=== PATIENT | female | born 1985 | race Caucasian/White ===

== ENCOUNTER 2016-08-06 18:02 | Emergency (ER) | payer MEDICAID ==
[~2016-08-06] VITALS: Ht 170.2 cm; Wt 116.1 kg
[~2016-08-06 18:02] MED LIST: COLACE100 MG PO; KEPPRA500 MG PO; LAMICTAL200 MG PO; NOR10T PO
[2016-08-06 19:24] VITALS: BP 123/84
== END 2016-08-06 19:24 | disposition home or self-care (01) ==
LOC: ED 18:02
DX: L02.611 Cutaneous abscess of right foot (principal); Z79.899 Other long term (current) drug therapy
CPT/HCPCS: 90715; J2001

== ENCOUNTER 2016-08-08 13:41 | Emergency (ER) | payer MEDICAID ==
[~2016-08-08] VITALS: Ht 170.2 cm; Wt 117.5 kg
[2016-08-08 18:10] VITALS: BP 113/76
== END 2016-08-08 18:10 | disposition home or self-care (01) ==
LOC: ED 13:41
DX: Z48.01 Encounter for change or removal of surgical wound dressing (principal); L03.031 Cellulitis of right toe

== ENCOUNTER 2016-10-23 11:44 | Emergency (ER) | payer MEDICAID ==
[~2016-10-23] VITALS: Ht 170.2 cm; Wt 119.3 kg
[2016-10-23 11:55] VITALS: BP 138/78
== END 2016-10-23 12:41 | disposition home or self-care (01) ==
LOC: ED 11:44
DX: N39.0 Urinary tract infection, site not specified (principal); Z90.89 Acquired absence of other organs; Z90.49 Acquired absence of other specified parts of digestive tract

== ENCOUNTER 2016-11-01 06:43 | Emergency (ER) | payer MEDICAID ==
[2016-11-01 08:32] LABS: UA SPECIFIC GRAVITY 1.015 (1.005-1.035); microscopic required? YES; urine erythrocyte NEGATIVE (NEGATIVE)
== END 2016-11-01 08:02 | disposition home or self-care (01) ==
LOC: ED 06:43
PROVIDERS: Emergency Medicine
DX: N39.0 Urinary tract infection, site not specified (principal); Z79.899 Other long term (current) drug therapy

== ENCOUNTER 2017-05-14 19:34 | Emergency (ER) | payer MEDICAID ==
[~2017-05-14] VITALS: Ht 170.2 cm; Wt 115.2 kg
[2017-05-14 19:58] VITALS: Ht 170.2 cm; Wt 115.2 kg
[2017-05-14 22:47] VITALS: BP 102/65
== END 2017-05-14 22:47 | disposition home or self-care (01) ==
LOC: ED 19:34
DX: J30.9 Allergic rhinitis, unspecified (principal); R11.10 Vomiting, unspecified

== ENCOUNTER 2017-06-26 17:43 | Emergency (ER) | payer MEDICAID ==
[~2017-06-26] VITALS: Ht 170.2 cm; Wt 116.6 kg
[2017-06-26 17:56] VITALS: Ht 170.2 cm; Wt 116.6 kg
[2017-06-26 19:44] VITALS: BP 146/72
== END 2017-06-26 19:44 | disposition home or self-care (01) ==
LOC: ED 17:43
DX: J34.0 Abscess, furuncle and carbuncle of nose (principal); J06.9 Acute upper respiratory infection, unspecified

== ENCOUNTER 2017-09-22 17:29 | Emergency (ER) | payer MEDICAID ==
[~2017-09-22] VITALS: Ht 170.2 cm; Wt 120.7 kg
[~2017-09-22 17:29] MED LIST changes: +NORCO1 TA2 PO
[2017-09-22 17:38] VITALS: Ht 170.2 cm; Wt 120.7 kg
[2017-09-22 19:13] LABS: CARBON DIOXIDE 27.2 mmol/L (21-32); CHLORIDE SERUM 103 mmol/L (98-107); CREATININE SERUM 0.8 mg/dL (0.6-1.0); GFR1 > 60 mL/min; GLUCOSE SERUM 106 mg/dL (74-106); POTASSIUM SERUM 3.5 mmol/L (3.5-5.1); SODIUM SERUM 140 mmol/L (136-145)
[2017-09-22 19:15] LABS: BASOPHIL % 0.8 % (0-2); RED CELL DISTRIBUTION WIDTH 13.6 % (11.5-14.5)
[2017-09-22 19:16] LABS: ALBUMIN 3.4 g/dL (3.4-5.0); ALKALINE PHOSPHATASE 72 U/L (46-116); ALT/SGPT 23 U/L (14-59); AST/SGOT 14 U/L (15-37); BILIRUBIN TOTAL 0.34 mg/dL (0.20-1.00); TOTAL PROTEIN, SERUM 7.6 g/dL (6.4-8.2)
[2017-09-22 19:22] LABS: PLATELET COUNT 421 x10^3mcL (130-400)
[2017-09-22 20:59] VITALS: BP 107/73
== END 2017-09-22 20:59 | disposition home or self-care (01) ==
LOC: ED 17:29
PROVIDERS: Emergency Medicine
DX: L03.311 Cellulitis of abdominal wall (principal)
CPT/HCPCS: J3490; Q9967

== ENCOUNTER 2017-10-11 18:02 | Emergency (ER) | payer MEDICAID | END 2017-10-11 19:15 | disposition left against medical advice (07) | LOC: ED 18:02 | DX: Z53.21 Procedure and treatment not carried out due to patient leaving prior to being seen by health care provider (principal) ==

== ENCOUNTER 2017-11-29 16:29 | Emergency (ER) | payer MEDICAID ==
[~2017-11-29] VITALS: Ht 170.2 cm; Wt 121.6 kg
[2017-11-29 16:40] VITALS: BP 162/78; Ht 170.2 cm; Wt 121.6 kg
== END 2017-11-29 18:14 | disposition home or self-care (01) ==
LOC: ED 16:29
DX: M25.532 Pain in left wrist (principal); M25.531 Pain in right wrist; Z90.49 Acquired absence of other specified parts of digestive tract; Z90.721 Acquired absence of ovaries, unilateral; Z86.69 Personal history of other diseases of the nervous system and sense organs

== ENCOUNTER 2018-01-04 16:09 | Emergency (ER) | payer MEDICAID ==
[~2018-01-04] VITALS: Ht 170.2 cm; Wt 122.5 kg
[2018-01-04 16:30] VITALS: Ht 170.2 cm; Wt 122.5 kg
[2018-01-04 17:37] VITALS: BP 140/82
== END 2018-01-04 17:37 | disposition home or self-care (01) ==
LOC: ED 16:09
DX: B34.9 Viral infection, unspecified (principal); L30.9 Dermatitis, unspecified; Z90.49 Acquired absence of other specified parts of digestive tract; Z90.89 Acquired absence of other organs; Z90.721 Acquired absence of ovaries, unilateral

== ENCOUNTER 2018-03-23 15:31 | Emergency (ER) | payer MEDICAID ==
[~2018-03-23] VITALS: Ht 170.2 cm; Wt 117.5 kg
[2018-03-23 15:33] VITALS: Ht 170.2 cm; Wt 117.5 kg
[2018-03-23 16:13] LABS: BASOPHIL % 0.4 % (0-2); RED CELL DISTRIBUTION WIDTH 14.5 % (11.5-14.5)
[2018-03-23 16:15] LABS: PLATELET COUNT 408 x10^3mcL (130-400)
[2018-03-23 16:23] LABS: CALCIUM 8.7 mg/dL (8.5-10.1); CARBON DIOXIDE 29.3 mmol/L (21-32); CHLORIDE SERUM 105 mmol/L (98-107); CREATININE SERUM 0.7 mg/dL (0.6-1.0); GFR1 > 60 mL/min; GLUCOSE SERUM 101 mg/dL (74-106); POTASSIUM SERUM 4.1 mmol/L (3.5-5.1); SODIUM SERUM 140 mmol/L (136-145)
[2018-03-23 16:55] VITALS: BP 120/80
== END 2018-03-23 16:55 | disposition home or self-care (01) ==
LOC: ED 15:31
PROVIDERS: Emergency Medicine
DX: G62.9 Polyneuropathy, unspecified (principal); R51 Headache; Z90.49 Acquired absence of other specified parts of digestive tract; Z90.89 Acquired absence of other organs; Z98.890 Other specified postprocedural states; Z90.721 Acquired absence of ovaries, unilateral
CPT/HCPCS: J1200; J1885; J2765

== ENCOUNTER 2018-07-18 15:57 | Emergency (ER) | payer MEDICAID ==
[~2018-07-18] VITALS: Ht 170.2 cm; Wt 110.8 kg
[2018-07-18 16:07] VITALS: Ht 170.2 cm; Wt 110.8 kg
[2018-07-18 18:48] LABS: microscopic required? NO
[2018-07-18 18:57] LABS: UA SPECIFIC GRAVITY >=1.030 (1.005-1.035); urine erythrocyte NEGATIVE (NEGATIVE)
[2018-07-18 19:05] LABS: BASOPHIL % 0.4 % (0-2); PLATELET COUNT 374 x10^3mcL (130-400); RED CELL DISTRIBUTION WIDTH 14.3 % (11.5-14.5)
[2018-07-18 19:14] LABS: CALCIUM 9.5 mg/dL (8.5-10.1); CARBON DIOXIDE 27.3 mmol/L (21-32); CHLORIDE SERUM 102 mmol/L (98-107); CREATININE SERUM 0.8 mg/dL (0.6-1.0); GFR1 > 60 mL/min; GLUCOSE SERUM 88 mg/dL (74-106); SODIUM SERUM 138 mmol/L (136-145)
[2018-07-18 19:26] LABS: ALBUMIN 3.9 g/dL (3.4-5.0); ALKALINE PHOSPHATASE 71 U/L (46-116); ALT/SGPT 20 U/L (14-59); AST/SGOT 13 U/L (15-37); BILIRUBIN TOTAL 0.3 mg/dL (0.20-1.00); LIPASE 126 IU/L (73-393); TOTAL PROTEIN, SERUM 8.4 g/dL (6.4-8.2)
[2018-07-18 21:29] VITALS: BP 120/83
== END 2018-07-18 21:33 | disposition short-term general hospital (02) ==
LOC: ED 15:57
PROVIDERS: Emergency Medicine
DX: N83.202 Unspecified ovarian cyst, left side (principal); Z90.49 Acquired absence of other specified parts of digestive tract; Z90.89 Acquired absence of other organs; Z98.890 Other specified postprocedural states
CPT/HCPCS: 36415

== ENCOUNTER 2018-07-21 12:49 | Emergency (ER) | payer MEDICAID ==
[~2018-07-21] VITALS: Ht 170.2 cm; Wt 109.3 kg
[2018-07-21 12:50] VITALS: Ht 170.2 cm; Wt 109.3 kg
[2018-07-21 16:05] LABS: BASOPHIL % 1.8 % (0-2); PLATELET COUNT 341 x10^3mcL (130-400)
[2018-07-21 16:11] LABS: microscopic required? NO
[2018-07-21 16:12] LABS: CHLORIDE SERUM 103 mmol/L (98-107); CREATININE SERUM 0.8 mg/dL (0.6-1.0); GFR1 > 60 mL/min; GLUCOSE SERUM 92 mg/dL (74-106); POTASSIUM SERUM 4.1 mmol/L (3.5-5.1); SODIUM SERUM 141 mmol/L (136-145)
[2018-07-21 16:17] LABS: ALBUMIN 3.8 g/dL (3.4-5.0); ALKALINE PHOSPHATASE 64 U/L (46-116); ALT/SGPT 18 U/L (14-59); AST/SGOT 17 U/L (15-37); BILIRUBIN TOTAL 0.45 mg/dL (0.20-1.00); LIPASE 108 IU/L (73-393); TOTAL PROTEIN, SERUM 7.9 g/dL (6.4-8.2)
[2018-07-21 16:29] LABS: urine erythrocyte NEGATIVE (NEGATIVE)
[2018-07-21 18:12] VITALS: BP 118/72
== END 2018-07-21 18:12 | disposition home or self-care (01) ==
LOC: ED 12:49
PROVIDERS: Emergency Medicine
DX: N83.202 Unspecified ovarian cyst, left side (principal); Z90.49 Acquired absence of other specified parts of digestive tract; Z90.89 Acquired absence of other organs; Z98.890 Other specified postprocedural states
CPT/HCPCS: 36415; J2270; Q0162

== ENCOUNTER 2018-08-13 13:25 | Emergency (ER) | payer MEDICAID ==
[~2018-08-13] VITALS: Ht 170.2 cm; Wt 111.6 kg
[2018-08-13 13:41] VITALS: Ht 170.2 cm; Wt 111.6 kg
[2018-08-13 15:09] LABS: BASOPHIL % 0.6 % (0-2); PLATELET COUNT 308 x10^3mcL (130-400); RED CELL DISTRIBUTION WIDTH 13.9 % (11.5-14.5)
[2018-08-13 15:19] LABS: CHLORIDE SERUM 103 mmol/L (98-107); CREATININE SERUM 0.8 mg/dL (0.6-1.0); GFR1 > 60 mL/min; GLUCOSE SERUM 98 mg/dL (74-106); POTASSIUM SERUM 3.8 mmol/L (3.5-5.1); SODIUM SERUM 139 mmol/L (136-145)
[2018-08-13 15:24] LABS: ALBUMIN 3.6 g/dL (3.4-5.0); ALKALINE PHOSPHATASE 54 U/L (46-116); ALT/SGPT 20 U/L (14-59); AST/SGOT 10 U/L (15-37); BILIRUBIN TOTAL 0.3 mg/dL (0.20-1.00); LIPASE 128 IU/L (73-393); TOTAL PROTEIN, SERUM 7.8 g/dL (6.4-8.2)
[2018-08-13 15:44] LABS: UA SPECIFIC GRAVITY <=1.005 (1.005-1.035); microscopic required? YES; urine erythrocyte 3+ (NEGATIVE)
[2018-08-13 18:18] VITALS: BP 118/73
== END 2018-08-13 18:16 | disposition home or self-care (01) ==
LOC: ED 13:25
PROVIDERS: Emergency Medicine
DX: M54.16 Radiculopathy, lumbar region (principal); R10.84 Generalized abdominal pain; G40.909 Epilepsy, unspecified, not intractable, without status epilepticus; E66.9 Obesity, unspecified; Z68.38 Body mass index [BMI] 38.0-38.9, adult; Z90.49 Acquired absence of other specified parts of digestive tract
CPT/HCPCS: 36415; J1100; J1885

== ENCOUNTER 2018-11-16 08:05 | Emergency (ER) | payer MEDICAID ==
[~2018-11-16] VITALS: Ht 170.2 cm; Wt 112.0 kg
[2018-11-16 08:10] VITALS: Ht 170.2 cm; Wt 112.0 kg
[2018-11-16 08:48] LABS: CALCIUM 9.7 mg/dL (8.5-10.1); CARBON DIOXIDE 26.8 mmol/L (21-32); CHLORIDE SERUM 103 mmol/L (98-107); GFR1 > 60 mL/min; GLUCOSE SERUM 100 mg/dL (74-106); POTASSIUM SERUM 3.8 mmol/L (3.5-5.1); SODIUM SERUM 142 mmol/L (136-145)
[2018-11-16 08:53] LABS: ALBUMIN 3.7 g/dL (3.4-5.0); ALKALINE PHOSPHATASE 87 U/L (46-116); ALT/SGPT 26 U/L (14-59); AST/SGOT 21 U/L (15-37); BILIRUBIN TOTAL 0.41 mg/dL (0.20-1.00); TOTAL PROTEIN, SERUM 7.8 g/dL (6.4-8.2)
[2018-11-16 09:23] LABS: BASOPHIL % 0.5 % (0-2); PLATELET COUNT 270 x10^3mcL (130-400); RED CELL DISTRIBUTION WIDTH 14.4 % (11.5-14.5)
[2018-11-16 11:21] VITALS: BP 133/81
== END 2018-11-16 11:21 | disposition home or self-care (01) ==
LOC: ED 08:05
PROVIDERS: Emergency Medicine
DX: R07.89 Other chest pain (principal); R20.0 Anesthesia of skin; R06.02 Shortness of breath
CPT/HCPCS: 36415; 85378; J1885; Q0092

== ENCOUNTER 2018-11-17 21:50 | Emergency (ER) | payer MEDICAID ==
[~2018-11-17] VITALS: Ht 170.2 cm; Wt 115.7 kg
[2018-11-17 21:54] VITALS: Ht 170.2 cm; Wt 115.7 kg
[2018-11-18 02:14] VITALS: BP 111/71
== END 2018-11-18 02:15 | disposition home or self-care (01) ==
LOC: ED 21:50
DX: R07.89 Other chest pain (principal); G40.909 Epilepsy, unspecified, not intractable, without status epilepticus; E66.9 Obesity, unspecified; Z68.39 Body mass index [BMI] 39.0-39.9, adult; Z90.49 Acquired absence of other specified parts of digestive tract; Z90.89 Acquired absence of other organs
CPT/HCPCS: 36415; 85378; Q9967

== ENCOUNTER 2019-01-01 18:07 | Emergency (ER) | payer MEDICAID ==
[~2019-01-01] VITALS: Ht 170.2 cm; Wt 112.0 kg
[2019-01-01 18:35] VITALS: Ht 170.2 cm; Wt 112.0 kg
[2019-01-01 20:24] VITALS: BP 114/61
== END 2019-01-01 20:24 | disposition home or self-care (01) ==
LOC: ED 18:07
DX: K64.8 Other hemorrhoids (principal)

== ENCOUNTER 2019-03-23 15:57 | Emergency (ER) | payer MEDICAID ==
[~2019-03-23] VITALS: Ht 170.2 cm; Wt 111.1 kg
[2019-03-23 18:12] VITALS: BP 121/86
== END 2019-03-23 18:12 | disposition home or self-care (01) ==
LOC: ED 15:57
DX: J10.1 Influenza due to other identified influenza virus with other respiratory manifestations (principal); B34.9 Viral infection, unspecified
CPT/HCPCS: 87804; J1885; Q0162

== ENCOUNTER 2019-04-08 16:06 | Emergency (ER) | payer MEDICAID ==
[~2019-04-08] VITALS: Ht 170.2 cm; Wt 111.6 kg
[2019-04-08 16:10] VITALS: Ht 170.2 cm; Wt 111.6 kg
[2019-04-08 18:58] LABS: BASOPHIL % 0.6 % (0-2); PLATELET COUNT 318 x10^3mcL (130-400); RED CELL DISTRIBUTION WIDTH 12.7 % (11.5-14.5)
[2019-04-08 19:13] LABS: CALCIUM 8.9 mg/dL (8.5-10.1); CARBON DIOXIDE 28.7 mmol/L (21-32); CHLORIDE SERUM 101 mmol/L (98-107); CREATININE SERUM 0.8 mg/dL (0.6-1.0); GFR1 > 60 mL/min; GLUCOSE SERUM 94 mg/dL (74-106); POTASSIUM SERUM 3.9 mmol/L (3.5-5.1); SODIUM SERUM 136 mmol/L (136-145)
[2019-04-08 19:17] LABS: ALBUMIN 3.9 g/dL (3.4-5.0); ALKALINE PHOSPHATASE 63 U/L (46-116); ALT/SGPT 29 U/L (14-59); AST/SGOT 10 U/L (15-37); BILIRUBIN TOTAL 0.36 mg/dL (0.20-1.00); C REACTIVE PROTEIN 4.5 mg/dL (<=0.9); TOTAL PROTEIN, SERUM 8.1 g/dL (6.4-8.2)
[2019-04-08 20:22] VITALS: BP 129/78
== END 2019-04-08 20:23 | disposition home or self-care (01) ==
LOC: ED 16:06
PROVIDERS: Emergency Medicine
DX: G62.9 Polyneuropathy, unspecified (principal)
CPT/HCPCS: 36415

== ENCOUNTER 2019-05-06 08:39 | Emergency (ER) | payer MEDICAID ==
[~2019-05-06] VITALS: Ht 170.2 cm; Wt 111.8 kg
[2019-05-06 08:43] VITALS: Ht 170.2 cm; Wt 111.8 kg
[2019-05-06 12:44] VITALS: BP 147/50
== END 2019-05-06 12:44 | disposition home or self-care (01) ==
LOC: ED 08:39
DX: R20.2 Paresthesia of skin (principal); Z90.49 Acquired absence of other specified parts of digestive tract
CPT/HCPCS: J1885

== ENCOUNTER 2019-05-15 07:21 | Emergency (ER) | payer MEDICAID ==
[~2019-05-15] VITALS: Ht 170.2 cm; Wt 112.5 kg
[2019-05-15 07:24] VITALS: Ht 170.2 cm; Wt 112.5 kg
[2019-05-15 08:04] LABS: BASOPHIL % 1.1 % (0-2); PLATELET COUNT 339 x10^3mcL (130-400); RED CELL DISTRIBUTION WIDTH 13.5 % (11.5-14.5)
[2019-05-15 08:10] LABS: CALCIUM 9.1 mg/dL (8.5-10.1); CARBON DIOXIDE 28.1 mmol/L (21-32); CHLORIDE SERUM 103 mmol/L (98-107); CREATININE SERUM 0.7 mg/dL (0.6-1.0); GFR1 > 60 mL/min; GLUCOSE SERUM 101 mg/dL (74-106); POTASSIUM SERUM 4.3 mmol/L (3.5-5.1); SODIUM SERUM 141 mmol/L (136-145)
[2019-05-15 08:14] LABS: ALKALINE PHOSPHATASE 57 U/L (46-116); ALT/SGPT 33 U/L (14-59); AST/SGOT 27 U/L (15-37); BILIRUBIN TOTAL 0.33 mg/dL (0.20-1.00); TOTAL PROTEIN, SERUM 8.1 g/dL (6.4-8.2)
[2019-05-15 08:45] VITALS: BP 144/73
== END 2019-05-15 08:45 | disposition home or self-care (01) ==
LOC: ED 07:21
PROVIDERS: Emergency Medicine
DX: M94.0 Chondrocostal junction syndrome [Tietze] (principal)
CPT/HCPCS: 36415; J1885; Q0092

== ENCOUNTER 2019-07-18 08:59 | Emergency (ER) | payer MEDICAID ==
[~2019-07-18] VITALS: Ht 170.2 cm; Wt 110.2 kg
[2019-07-18 09:10] VITALS: Ht 170.2 cm; Wt 110.2 kg
[2019-07-18 09:48] LABS: BASOPHIL % 0.4 % (0-2); PLATELET COUNT 299 x10^3mcL (130-400); RED CELL DISTRIBUTION WIDTH 12.9 % (11.5-14.5)
[2019-07-18 10:10] LABS: CARBON DIOXIDE 28.7 mmol/L (21-32); CHLORIDE SERUM 105 mmol/L (98-107); CREATININE SERUM 0.7 mg/dL (0.6-1.0); GFR1 > 60 mL/min; GLUCOSE SERUM 99 mg/dL (74-106); POTASSIUM SERUM 4.3 mmol/L (3.5-5.1); SODIUM SERUM 139 mmol/L (136-145)
[2019-07-18 10:25] LABS: ALBUMIN 3.7 g/dL (3.4-5.0); ALKALINE PHOSPHATASE 52 U/L (46-116); ALT/SGPT 26 U/L (14-59); AST/SGOT 14 U/L (15-37); BILIRUBIN TOTAL 0.34 mg/dL (0.20-1.00); TOTAL PROTEIN, SERUM 7.4 g/dL (6.4-8.2)
[2019-07-18 10:34] LABS: FREE T4 1.14 ng/dL (0.76-1.46); FREE THYROXINE INDEX 2.3 ug/dL (1.4-4.5); T4(THYROXINE) 7.8 ug/dL (4.7-13.3)
[2019-07-18 10:48] LABS: T3 TOTAL 1.52 ng/mL
[2019-07-18 13:06] VITALS: BP 101/46
== END 2019-07-18 13:06 | disposition home or self-care (01) ==
LOC: ED 08:59
PROVIDERS: Emergency Medicine
DX: R53.1 Weakness (principal); R11.2 Nausea with vomiting, unspecified
CPT/HCPCS: 84439; J2405; J7030

== ENCOUNTER 2019-12-05 10:38 | Emergency (ER) | payer MEDICAID ==
[~2019-12-05] VITALS: Ht 170.2 cm; Wt 112.0 kg
[2019-12-05 10:54] VITALS: Ht 170.2 cm; Wt 112.0 kg
[2019-12-05 12:54] LABS: CALCIUM 9.3 mg/dL (8.5-10.1); CARBON DIOXIDE 28.1 mmol/L (21-32); CHLORIDE SERUM 102 mmol/L (98-107); CREATININE SERUM 0.6 mg/dL (0.6-1.0); GFR1 > 60 mL/min; GLUCOSE SERUM 94 mg/dL (74-106); POTASSIUM SERUM 3.8 mmol/L (3.5-5.1); SODIUM SERUM 138 mmol/L (136-145)
[2019-12-05 12:59] LABS: ALBUMIN 3.3 g/dL (3.4-5.0); ALKALINE PHOSPHATASE 52 U/L (46-116); ALT/SGPT 40 U/L (14-59); AST/SGOT 16 U/L (15-37); BILIRUBIN TOTAL 0.2 mg/dL (0.20-1.00); LIPASE 107 IU/L (73-393); TOTAL PROTEIN, SERUM 7.5 g/dL (6.4-8.2)
[2019-12-05 13:05] LABS: BASOPHIL % 0.2 % (0-2); PLATELET COUNT 342 x10^3mcL (130-400); RED CELL DISTRIBUTION WIDTH 13.4 % (11.5-14.5)
[2019-12-05 14:22] VITALS: BP 159/81
== END 2019-12-05 14:22 | disposition home or self-care (01) ==
LOC: ED 10:38
PROVIDERS: Emergency Medicine
DX: O26.892 Other specified pregnancy related conditions, second trimester (principal); R06.02 Shortness of breath; R11.2 Nausea with vomiting, unspecified; Z20.828 Contact with and (suspected) exposure to other viral communicable diseases; Z3A.17 17 weeks gestation of pregnancy
CPT/HCPCS: J2765; J7040; Q0092

== ENCOUNTER 2020-02-13 07:53 | Emergency (ER) | payer MEDICAID ==
[~2020-02-13] VITALS: Ht 170.2 cm; Wt 119.7 kg
[2020-02-13 08:05] VITALS: Ht 170.2 cm; Wt 119.7 kg
[2020-02-13 08:45] VITALS: BP 111/57
== END 2020-02-13 08:45 | disposition home or self-care (01) ==
LOC: ED 07:53
DX: O36.4XX0 Maternal care for intrauterine death, not applicable or unspecified (principal); Z3A.27 27 weeks gestation of pregnancy